=== PATIENT | male | born 1970 | race Caucasian/White ===

== ENCOUNTER 2018-10-18 10:35 | Emergency (ER) | payer SELFPAY ==
[2018-10-18] MEDS ORDERED: LIDOCAINE 0.5%/EPINEPHRINE INJ 50 ML VIAL INJ ONE (10:45)
[2018-10-18] MEDS ORDERED: DIPH/PERTUSS(ACELL)/TETANUS VAC/PF 0.5 ML SYR (>=10YO) IM ONE (10:45)
[2018-10-18] MEDS ORDERED: HYDROCODONE/ACETAMINOPHEN 7.5-325 MG TABLET PO ONE (10:45)
--- NOTE | 2018-10-18 11:38 | RADIOLOGY REPORT (SQ) ---
EXAM DESCRIPTION: FOREARM RIGHT COMPLETED DATE/TIME: 10/18/2018 11:26 am REASON FOR STUDY: lac w/ glass COMPARISON: None. NUMBER OF VIEWS: Two views. TECHNIQUE: Two radiographic images acquired of the right forearm, including elbow and wrist in at le ast one projection. LIMITATIONS: None. FINDINGS: MINERALIZATION: Normal. BONES: No acute fracture. No worrisome bone lesions. SOFT TISSUES: Skin laceration anterior distal forearm. No foreign body. OTHER: No other significant finding. IMPRESSION: Soft tissue injury. TECHNICAL DOCUMENTATION: JOB ID: [id number] [employer]- All Rights Reserved Reading location - IP/workstation name: [email or web address]
--- NOTE | 2018-10-18 13:43 | ER Document Report ---
ED General - General Chief Complaint: Laceration Stated Complaint: WRIST LACERATION Time Seen by Provider: 10/18/18 10:39 Notes: Patient is a 48-year-old male presents to the emergency department with a laceration to the right forearm. Patient states he tripped and fell onto a piece of glass at work. 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 Patient denies hitting his head, neck, back or any pain at all. Patient is unsure of when his last tetanus immunization was. Patient is denying all other complaints. Past medical history: None Medications: None Allergies: None TRAVEL OUTSIDE OF THE [place] IN LAST 30 DAYS: No - Related Data Allergies/Adverse Reactions: No Known Allergies Allergy (Unverified 10/18/18 11:08) Past Medical History - General Information source: Patient - Social History Smoking Status: Current Every Day Smoker Family History: Reviewed & Not Pertinent Patient has suicidal ideation: No Patient has homicidal ideation: No Renal/ Medical History: Denies: Hx Peritoneal Dialysis Review of Systems - Review of Systems Constitutional: No symptoms reported EENT: No symptoms reported Cardiovascular: No symptoms reported Respiratory: No symptoms reported Gastrointestinal: No symptoms reported Genitourinary: No symptoms reported Male Genitourinary: No symptoms reported Musculoskeletal: See HPI Skin: See HPI Hematologic/Lymphatic: No symptoms reported Neurological/Psychological: No symptoms reported Physical Exam - Vital signs Vitals: Temp Pulse Resp BP Pulse Ox 98.4 F 102 H 18 181/69 H 99 10/18/18 11:07 10/18/18 11:07 10/18/18 11:07 10/18/18 11:07 10/18/18 11:07 - Notes Notes: GENERAL: Alert, interacts well. No acute distress. HEAD: Normocephalic, atraumatic. EYES: Pupils equal, round, and reactive to light. Extraocular movements intact. ENT: Oral mucosa moist, tongue midline. NECK: Full range of motion. Supple. Trachea midline. LUNGS: Clear to auscultation bilaterally, no wheezes, rales, or rhonchi. No respiratory distress. HEART: Regular rate and rhythm. No murmur ABDOMEN: Soft, non-tender. Non-distended. Bowel sounds present in all 4 quadrants. EXTREMITIES: Moves all 4 extremities spontaneously. No edema, normal radial and dorsalis pedis pulses bilaterally. No cyanosis. BACK: no cervical, thoracic, lumbar midline tenderness. No saddle anesthesia, normal distal neurovascular exam. NEUROLOGICAL: Alert and oriented x3. Normal speech. cranial nerves II through XII grossly intact PSYCH: Normal affect, normal mood. SKIN: Warm, dry, normal turgor. 8 cm linear laceration noted to the medial volar aspect of the right mid forearm. Muscle, what appears to be nerve, and tendon exposed. Patient has full range of motion all 5 fingers on the right distal extremity. He can flex and extend against resistance, abduct and abduct all 5 fingers against resistance. Patient does have some decreased sensation along the medial aspect of the right pinky finger. Course - Re-evaluation Re-evalutation: 10/18/18 13:41 Discussed this case with orthopedics Dr. Danny Hernandez who suggests closing the wound with a deep layer suture, starting the patient on antibiotics, and having him follow-up outpatient in his office. My attending Dr. Akosua Wang also examined to the wound and agrees with plan. Sutures placed, see procedure note, patient tolerated procedure well. - Vital Signs Vital signs: Temp Pulse Resp BP Pulse Ox 98.4 F 102 H 18 181/69 H 99 10/18/18 11:07 10/18/18 11:07 10/18/18 11:07 10/18/18 11:07 10/18/18 11:07 Procedures - Laceration/Wound Repair Forearm Wound length (cm): 8 Wound's Depth, Shape: Into muscle, Linear Laceration pre-procedure: Sterile PPE donned, Betadine prep applied, Sterile drapes applied, Shur-Clens applied Anesthetic type: 1% Lidocaine w/epi Volume Anesthetic (mLs): 10 Wound explored: Clean, No foreign body removed Irrigated w/ Saline (mLs): 500 Wound Debrided: Extensive Wound Repaired With: Sutures Suture Size/Type: 4:0, Ethilon Number of Sutures: 7 Layer Closure?: Yes Deep Layer Suture Size/Type: 4:0, Gut Number Deep Layer Sutures: 7 Post-procedure wound care: Sterile dressing applied Post-procedure NV exam normal: Yes - Same as prior to laceration repair Complications: No Discharge - Discharge Clinical Impression: Laceration Condition: Stable Disposition: HOME, SELF-CARE Instructions: Laceration Care ([facility]), Prophylactic Antibiotic ([facility]), Soap Cleansing ([facility]), Tetanus Immunization Given ([facility]), Oral Narcotic Medication ([facility]) Additional Instructions: As we discussed you have been seen and treated in the emerge duration to your right forearm. These sutures need to be removed in the next 10-14 days. Please keep the wound dry and clean. Please take antibiotics as prescribed. Please immediately return to the emergency room should you notice redness, swelling, discharge from the site. Please also return to the emergency room for any other concerning symptoms. Prescriptions: Cephalexin Monohydrate [Keflex 500 mg Capsule] 500 mg PO BID 7 Days #14 capsule Referrals: DANNY HERNANDEZ DO [ACTIVE STAFF] - Follow up as needed
[2018-10-18 14:04] VITALS: BP 113/73
== END 2018-10-18 14:15 | disposition home or self-care (01) ==
LOC: EDBD → ER 10:35
DX: S56.921A Laceration of unspecified muscles, fascia and tendons at forearm level, right arm, initial encounter (principal); S51.811A Laceration without foreign body of right forearm, initial encounter; W19.XXXA Unspecified fall, initial encounter; W25.XXXA Contact with sharp glass, initial encounter; Y92.69 Other specified industrial and construction area as the place of occurrence of the external cause; Y99.0 Civilian activity done for income or pay; F17.200 Nicotine dependence, unspecified, uncomplicated; R20.8 Other disturbances of skin sensation
CPT/HCPCS: 99283; 90471; 73090; 90715; 12034; J3490